=== PATIENT | male | born 1950 ===

== ENCOUNTER 2017-12-15 12:30 | Inpatient (IN) | payer OTHER ==
[~2017-12-15] VITALS: Ht 172.7 cm; Wt 81.6 kg
[2017-12-15] MEDS ORDERED: PROTONIX40 MG PO (14:21)
[2017-12-15] MEDS ORDERED: LOSARTAN-HCTZ1 EAC2 PO (14:21)
[2017-12-15] MEDS ORDERED: GLUCOTROL XL5 MG PO (14:21)
[2018-01-01] MEDS ORDERED: Intestinex CAP PO (13:06)
[2018-01-01] MEDS ORDERED: OXYC1TAB9 PO (13:06)
[2018-01-01] MEDS ORDERED: PANTOPRAZOLE SO40 MG PO (13:06)
[2018-01-01] MEDS ORDERED: DIALYVITE 8001 EAC1 PO (13:34)
== END 2018-01-01 14:50 | disposition home or self-care (01) | DRG 330 ==
LOC: SURH 12-19 10:00 → O/R 12-26 06:21 → SURH 12-26 12:30 → SURG 12-26 13:32
PROVIDERS: Surgery
PROC: 07TC4ZZ Resection of Pelvis Lymphatic, Percutaneous Endoscopic Approach (ICD-10-PCS; 2017-12-26)
PROC: 0DTU4ZZ Resection of Omentum, Percutaneous Endoscopic Approach (ICD-10-PCS; 2017-12-26)
PROC: 0DTF4ZZ Resection of Right Large Intestine, Percutaneous Endoscopic Approach (ICD-10-PCS; principal; 2017-12-26 04:30)
DX: C18.2 Malignant neoplasm of ascending colon (principal); K56.0 Paralytic ileus; D12.2 Benign neoplasm of ascending colon; I10 Essential (primary) hypertension; R60.0 Localized edema

== ENCOUNTER 2018-07-31 07:15 | Outpatient (CLI) | payer OTHER ==
[~2018-07-31 07:15] MED LIST: DIALYVITE 8001 EAC1 PO; GLUCOTROL XL5 MG PO; Intestinex CAP PO; LOSARTAN-HCTZ1 EAC2 PO; OXYC1TAB9 PO; PANTOPRAZOLE SO40 MG PO; PROTONIX40 MG PO
== END 2018-07-31 07:19 | disposition home or self-care (01) ==
LOC: TOM 07:15
DX: C18.2 Malignant neoplasm of ascending colon (principal); R97.0 Elevated carcinoembryonic antigen [CEA]
CPT/HCPCS: 74177; Q9965

== ENCOUNTER 2018-10-26 07:23 | Day surgery (SDC) | payer OTHER ==
[2018-10-26] MEDS ORDERED: ULTRACET PO (09:04)
== END 2018-10-26 11:00 | disposition home or self-care (01) ==
LOC: CIR.AMB 07:23
DX: C18.2 Malignant neoplasm of ascending colon (principal)
CPT/HCPCS: 36561; C1751